=== PATIENT | female | born 1995 | race Two or more races ===

== ENCOUNTER 2023-01-17 09:40 | Emergency (ER) | payer OTHER ==
[~2023-01-17] VITALS: Ht 160 cm; Wt 84.0 kg
[2023-01-17 11:41] VITALS: BP 120/69; RESP 18; TEMP 97.9; O2SAT 98
[2023-01-17] MEDS ORDERED: TETANUS-DIPTH-ACEL PERTUSSIS 0.5ML SYR Tdap IM ONE (12:15)
[2023-01-17] MEDS ORDERED: HYDROcodone-ACET 10/325MG TAB PO ONE (12:15)
[2023-01-17] MEDS ORDERED: LIDOCAINE 1% HCL (LOCAL ANESTH.) INJ 20ML MDV ID ONE (13:00)
[2023-01-17] MEDS ORDERED: CEPH500C PO (13:54)
[2023-01-17] MEDS ORDERED: cefTRIAXone SOD 1,000 MG VL IM ONE (14:00)
[2023-01-17] MEDS ORDERED: NEOMYCIN-BACITRACIN-POLYM UNITDOSE PKG TOP OINT TOP ONE (14:00)
[2023-01-17 14:05] VITALS: PULSE 63
== END 2023-01-17 14:34 | disposition home or self-care (01) ==
LOC: ER 09:40
DX: S61.211A Laceration without foreign body of left index finger without damage to nail, initial encounter (principal); W26.0XXA Contact with knife, initial encounter; Y93.89 Activity, other specified; Y92.89 Other specified places as the place of occurrence of the external cause; Y99.8 Other external cause status
CPT/HCPCS: 12001; 73120; 82962; 90471; 90715; 96372; 99284; J0696; J2001